=== PATIENT | male | born 1990 | race Caucasian/White ===

== ENCOUNTER 2019-05-06 19:14 | Emergency (ER) | payer SELFPAY ==
[2019-05-06 19:31] VITALS: BP 150/84; PULSE 103; TEMP 98.7; BMI 25.0
--- NOTE | 2019-05-06 22:13 | PDOC ---
History of Present Illness - General Chief Complaint: Injury Stated Complaint: RIGHT LEG INJURY Time Seen by Provider: 05/06/19 20:57 - History of Present Illness Initial Comments: 05/06/19 22:10 29-year-old male without comorbidities presents for evaluation of right lower leg pain. He states 6 days ago he was struck in the right lower leg while playing soccer. Since that time his leg is been come increasingly swollen and painful. He complains of intermittent numbness at this point. Past History - Past Medical History Allergies/Adverse Reactions: Allergies Allergy/AdvReac Type Severity Reaction Status Date / Time No Known Allergies Allergy Verified 05/06/19 19:28 Home Medications: Ambulatory Orders NK [No Known Home Medication] 05/06/19 COPD: No - Psycho Social/Smoking Cessation Hx Smoking History: Never smoked Review of Systems - Review of Systems Musculoskeletal: Yes: See HPI *Physical Exam - Vital Signs Last Vital Signs Temp Pulse Resp BP Pulse Ox 98.7 F 103 H 18 150/84 99 05/06/19 19:29 05/06/19 19:29 05/06/19 19:29 05/06/19 19:29 05/06/19 19:29 - Physical Exam 05/06/19 22:10 Right lower leg is ecchymotic both with brownish dark ecchymosis and purplish ecchymosis. There is tenderness and swelling at the medial aspect of the distal third of the right lower leg. The thigh and calf are otherwise soft and nontender. There is appropriate tenderness in the area of the ecchymosis. With a small pocket of swelling at the midpoint of the ecchymosis. There is full passive range of motion of the ankle toes and knees without tenderness or pain. There are no gross sensorimotor deficits neurovascular intact sensation is equal bilaterally. Dorsal pedal and posterior tibial pulses are 2+ and symmetric. ED Treatment Course - RADIOLOGY Radiology Studies Ordered: Category Date Time Status DUPLEX VASCUL US-1 LEG [US] Stat Ultrasound 05/06/19 21:12 Completed Medical Decision Making - Medical Decision Making 05/06/19 22:11 Ultrasound is negative for DVT. This is not likely a compartment syndrome. This is most likely an extra compartmental hematoma. Patient has no clinical findings of compartment syndrome 6 days post injury. Subjective numbness on the medial aspect of the right foot is intermittent and exacerbated with prolonged dependent weightbearing. Recommended strict elevation at home and close orthopedic follow-up. Patient is in agreement with the plan this case was also discussed with orthopedic surgery. Discharge - Discharge Information Problems reviewed: Yes Clinical Impression/Diagnosis: Hematoma of lower leg Condition: Stable Disposition: HOME - Admission No - Follow up/Referral Referrals: Marcello Garcia DO [Staff Physician] - - Patient Discharge Instructions Additional Instructions: Tylenol and Motrin as directed for pain. Strict elevation and ankle range of motion above the level of the heart as discussed in the emergency room. Return to the emergency room for any worsening symptoms and without fail please follow- up with orthopedic surgery in 2 to 3 days for further evaluation and treatment options. - Post Discharge Activity Work/Back to School Note: Back to Work
== END 2019-05-07 00:14 | disposition home or self-care (01) ==
LOC: JERFT 19:14
DX: S80.11XA Contusion of right lower leg, initial encounter (principal); W50.0XXA Accidental hit or strike by another person, initial encounter; Y93.66 Activity, soccer; Y92.322 Soccer field as the place of occurrence of the external cause; Y99.8 Other external cause status
CPT/HCPCS: 93971-TC; 99281-25